=== PATIENT | female | born 1955 | race Caucasian/White ===

== ENCOUNTER 2018-03-31 10:25 | Emergency (ER) | payer MEDICARE, MEDICAID ==
[~2018-03-31] VITALS: Ht 157.5 cm; Wt 65.9 kg
[~2018-03-31 10:25] MED LIST: BENZ1TAB70 PO; CLOZ100 PO; CLOZARIL PO; COLACE PO; DDAV1 PO; FERROUS SULFATE PO; LEVOTHYROXINE PO; LOPID PO; LOPRESSOR PO; SENNA PO; VITAMIN C PO; [UNRECOGNIZED DRUG - OTHER] PO
[2018-03-31] MEDS ORDERED: GUAN1TAB22 PO (10:48)
[2018-03-31] MEDS ORDERED: CLOZ100 PO (10:48)
[2018-03-31] MEDS ORDERED: LEVO100 PO (10:48)
[2018-03-31] MEDS ORDERED: ILOP2TAB2 PO (10:48)
[2018-03-31] MEDS ORDERED: BISA5TAB12 PO (10:48)
[2018-03-31] MEDS ORDERED: BENZ1TAB10 PO (10:48)
[2018-03-31] MEDS ORDERED: MULT-1203 PO (10:48)
[2018-03-31] MEDS ORDERED: OS500 PO (10:48)
[2018-03-31] MEDS ORDERED: BUSP10TA23 PO (10:48)
[2018-03-31] MEDS ORDERED: SIMV-260 PO (10:48)
[2018-03-31] MEDS ORDERED: PERTUSS(ACELL),DIPH,TET VAC/PF 0.5 ML VIAL IM ONE (11:45)
[2018-03-31] MEDS ORDERED: LIDOCAINE HCL 1% 10 ML VIAL INJ ONE (13:15)
[2018-03-31 13:50] VITALS: BP 127/69
== END 2018-03-31 15:07 | disposition home or self-care (01) ==
LOC: EMS 10:27
DX: S01.511A Laceration without foreign body of lip, initial encounter (principal); S01.21XA Laceration without foreign body of nose, initial encounter; E78.00 Pure hypercholesterolemia, unspecified; I10 Essential (primary) hypertension; E03.9 Hypothyroidism, unspecified; F20.9 Schizophrenia, unspecified; Z88.8 Allergy status to other drugs, medicaments and biological substances; Z79.899 Other long term (current) drug therapy; W01.0XXA Fall on same level from slipping, tripping and stumbling without subsequent striking against object, initial encounter; Y93.01 Activity, walking, marching and hiking; Y92.89 Other specified places as the place of occurrence of the external cause; Y99.8 Other external cause status
CPT/HCPCS: 12011; 70450; 90471; 90715; 99284; J3490